=== PATIENT | female | born 1955 | race Caucasian/White ===

== ENCOUNTER 2020-01-18 10:48 | Emergency (ER) | payer MEDICARE, SELFPAY ==
[2020-01-18 11:14] VITALS: BP 122/62; PULSE 85; RESP 18; TEMP 37; O2SAT 99
--- NOTE | 2020-01-18 11:56 | DI.CT.S_ITS ---
PROCEDURE: CT HEAD/BRAIN WO CON INDICATIONS: generalized weakness, memory difficulty TECHNIQUE: Noncontrast 4.5 mm thick angled axial sections acquired from the foramen magnum to the vertex, with coronal and sagittal reformats. For radiation dose reduction, the following was used: automated exposure control, adjustment of mA and/or kV according to patient size. COMPARISON: None. FINDINGS: Image quality: Excellent. CSF spaces: Basal cisterns are patent. No extra-axial fluid collections. Ventricles are normal in size and shape. Brain: No midline shift. No intracranial masses or hemorrhage. Bella-white matter interface is normal. Skull and face: Calvarium and visualized facial bones are intact, without suspicious lesions. Sinuses: Visualized sinuses and mastoids are clear. IMPRESSION: No acute intracranial abnormality. Dictated by: Julio C Sen M.D. on 01/18/2020 at 12:28 Approved by: Julio C Sen M.D. on 01/18/2020 at 12:31
--- NOTE | 2020-01-18 12:40 | PC.NURSE ---
iv site placed labs drawn
[2020-01-18 12:43] LABS: Add Manual Diff / Slide Review NO; Basophils Absolute Auto 0 /uL (0-100); Basophils Percent Auto 0.4 % (0-2); Eosinophils Absolute Auto 0 /uL (0-450); Eosinophils Percent Auto 0.6 % (2-4); Hematocrit 35.3 % (36-46); Hemoglobin 11.8 g/dL (12.0-16.0); Lymphocytes Absolute Auto 1200 /uL (1100-4500); Lymphocytes Percent Auto 19.8 % (25-40); Mean Corpuscular HGB Conc 33.4 % (30-36); Mean Corpuscular Hemoglobin 28.6 PG (26-34); Mean Corpuscular Volume 85.6 fL (80-100); Monocytes Absolute Auto 500 /uL (0-900); Monocytes Percent Auto 7.7 % (3-14); Neutrophils Absolute Auto 4300 /uL (1500-7000); Neutrophils Percent Auto 71.5 % (50-75); Platelet Count 258 X10^3/uL (150-400); Red Blood Cell Count 4.13 X10^6/uL (4.0-5.2); Red Cell Distribution Width 14.4 % (11.6-14.8)
[2020-01-18 12:50] LABS: INR 1.1 (0.9-1.3); Prothrombin Time 12.7 SECONDS (10.1-12.7)
[2020-01-18 12:52] LABS: PTT Partial Thromboplastin Tim 34 SECONDS (26.4-36.2)
[2020-01-18 12:58] LABS: Alanine Aminotransferase 16 IU/L (<35); Albumin 4.4 g/dL (3.5-5.0); Albumin Globulin Ratio 1.2 (1.0-2.8); Alkaline Phosphatase 75 U/L (38-126); Aspartate Aminotransferase 25 IU/L (14-36); BUN Creatinine Ratio 22.7 (6-22); Bilirubin Total 0.4 mg/dL (0.2-1.3); Blood Urea Nitrogen 15 mg/dL (7-17); Calcium 9.6 mg/dL (8.4-10.2); Carbon Dioxide 32 mmol/L (22-32); Chloride 103 mmol/L (98-107); Estimated Glomerular Filt Rate > 60.0 mL/min (>60); Globulin 3.6 g/dL (1.7-4.1); Glucose 93 mg/dL (80-110); HEMOLYSIS 37 (0-50); Potassium 4.5 mmol/L (3.4-5.1); Sodium 141 mmol/L (137-145)
[2020-01-18 13:10] LABS: Creatine Kinase 61 U/L (30-135)
--- NOTE | 2020-01-18 13:17 | ED_ITS ---
HPI - Weakness <LATIA Ashley - Last Filed: 01/19/20 00:18> General Chief complaint: Weakness Stated complaint: Bilateral arm and leg floppiness Time Seen by Provider: 01/18/20 11:05 Source: patient Mode of arrival: Ambulatory Limitations: no limitations History of Present Illness HPI Narrative: This is a 64 year female, nonsmoker, who has history of hypothyroidism and migraine headache presents to ED with generalize weakness in bilateral upper and lower extremities and had difficult time remembering one particular conversation last night at 8 pm. Patient states she has condition that her body can recover from exertion quickly. The patient is currently visiting [facility] in [facility] for last 6 weeks and she resides in [place] and is planning to go back to [place] in 5 days. Patient states she had similar symptoms with generalize weakness in upper and lower extremities once in July and again in September when she reached out to grab something above her head with leaning backward position/bending forward and describes as her arms, legs and neck felt floppy which lasts for brief moments. She contributed to not paying attention and mindful for not remembering 1 particular conversation. She was seen at urgent care and recommended an evaluation by neurologist. She actually had neurologist appointment 2 days ago which she canceled since she had not had recurring symptoms until last night. She had brain MRI test in 11/19/19 and was informed no abnormal findings. She has arranged follow-up appointment with her primary care physician back in [place] and neurology appointment when she returns to home. She denies chest pain, breathing difficul ty, dizziness, fever, chills, nausea or vomiting. She denies associated symptoms such as vision change, headache, speech difficulty, incoordination, facial droops. However, she is here today for an evaluation with concerns for stroke and whether she should be flying home on Tuesday. She reports she is very active and healthy. Review of Systems <LATIA Ashley - Last Filed: 01/19/20 00:18> Review of Systems Narrative: General: Denies fever, chills, fatigue, malaise, sweats. HEENT: Denies sinus pain, ear pain, sore throat, difficulty swallowing, dizziness. Respiratory: Denies dyspnea, cough, wheezing, hemoptysis, sputum. Cardiovascular: Denies chest pain, palpitations, orthopnea, edema. Gastrointestinal: Denies nausea, vomiting, abdominal pain, diarrhea, constipation, melena. : Denies dysuria, frequency, incontinence, hematuria, urinary retention. Musculoskeletal: See HPI Skin: Denies rash, skin lesions, or other. Neurologic: See HPI Psychiatric: No concerning psychosocial issues. 12-point review of systems is negative except for those stated above. Patient History <LATIA Ashley - Last Filed: 01/19/20 00:18> Medical History Hypothyroidism (Acute) Insomnia (Acute) Migraine headache (Acute) Social History Smoking Status: Never smoker Smoking Status: Never smoker alcohol intake frequency: holidays/special occasions only Exam <[facility] - Last Filed: 01/19/20 00:18> Narrative Exam Narrative: GEN: Alert, oriented x 3, well appearing and nourished, and in no acute distress. Head: Normal cephalic, atraumatic. No scalp or temporal tenderness, palpable mass or rash. EYES: Pupils are equal, round, and reactive to light and accommodation. Extraocular muscles are intact bilaterally. There is no subconjunctival hemorrhage, exudate and sclera non-icteric. ENT: Hearing grossly intact. Nose without bleeding, purulent discharge, septal hematoma or deviation. Turbinate without erythema or swelling. Facial sinuses nontender to palpate. Mucous membrane moist, no mucosal lesion. Throat without erythema, tonsillar hypertrophy or exudate. Uvula in midline, airway patent. Neck: Trachea in midline. No JVD, non-tender without lymphadenopathy. No mas ses or thyroid megaly. Supple, non-tender and no meningeal signs. CARDIAC: Normal regular rate and rhythm without murmurs, gallops, or rubs. No chest wall tenderness. No peripheral edema, cyanosis or pallor. Capillary refill is less than 2 seconds. No carotid bruits. RESPIRATORY: Lungs are cleat to auscultate bilaterally. No cough, wheezes, rales, or rhonchi. No stridor, respiratory distress, increase work of breathing, or accessary muscle used. ABD: Abdomen soft, nontender and non-distended. No guarding or rebound tenderness to palpate. Bowel sounds are normal in all 4 quadrants. There is no palpable masses or organomegaly. EXT: Full painless ROM of all extremities with no loss of sensation, strength, effusion or edema. SKIN: Warm, dry, normal color for patient. No erythema, lesions or rash. BACK: Nontender without deformity or crepitance. No flank tenderness. NEUROLOGICAL: Alert and oriented to place, time and person. No facial droops, dysphasia. CN II-XII intact. Strength and sensation symmetric and intact throughout. Cerebellar testing normal. PSYCHIATRIC: Good judgement and reason, without hallucinations, abnormal affect or abnormal behaviors during the examination. Patient is not suicidal. Initial Vital Signs Initial Vital Signs: Vital Signs Temperature 98.6 F 01/18/20 11:14 Pulse Rate 85 01/18/20 11:14 Respiratory Rate 18 01/18/20 11:14 Blood Pressure 122/62 01/18/20 11:14 Pulse Oximetry 99 01/18/20 11:14 <Joy Connolly DO - Last Filed: 01/19/20 07:13> Initial Vital Signs Initial Vital Signs: Vital Signs Temperature 98.6 F 01/18/20 11:14 Pulse Rate 85 01/18/20 11:14 Respiratory Rate 18 01/18/20 11:14 Blood Pressure 122/62 01/18/20 11:14 Pulse Oximetry 99 01/18/20 11:14 Scores <LATIA Ashley - Last Filed: 01/19/20 00:18> GCS [place] coma scale eye opening: Spontaneous Lilly coma scale verbal response: Orientated [place] coma scale motor response: Obey commands Salem coma scale total score: 15 NIH Stroke Scale Level of Conciousness: Alert, keenly responsive Ask month/age: Answers both questions correctly. Open/close eyes, close hand: Performs both tasks correctly Best gaze horizontal: Normal Visual colunga: No visual loss Facial palsy: Normal symetrical movement Left arm drift: No drift for full 10 sec Right arm drift: No drift for full 10 sec Left leg drift: No drift for full 10 sec Right leg drift: No drift for full 10 sec Limb ataxia: Absent Sensory on face/arms/legs: Normal, no sensory loss Best language: No aphasia, normal Dysarthria: Normal Extinction or inattention: No abnormality Total NIH Stroke scale score: 0 Course <Raffy WynneLATIA Chong - Last Filed: 01/19/20 00:18> Orders Ordered: ED Orders 01/18/20 11:55 EKG-12 Lead Stat 01/18/20 11:56 CT head/brain wo con Stat 01/18/20 12:36 Complete Blood Count AUTO DIFF Stat Comprehensive Metabolic Panel Stat Partial Thromboplastin Time Stat Prothrombin Time INR Stat Troponin & CK Cardiac Panel Stat Vital Signs Vital signs: Vital Signs - 8 hr 01/18/20 11:14 Temperature 98.6 F Pulse Rate 85 Respiratory Rate 18 Blood Pressure 122/62 Pulse Oximetry 99 <Joy Connolly DO - Last Filed: 01/19/20 07:13> Orders Ordered: ED Orders 01/18/20 11:55 EKG-12 Lead Stat 01/18/20 11:56 CT head/brain wo con Stat 01/18/20 12:36 Complete Blood Count AUTO DIFF Stat Comprehensive Metabolic Panel Stat Partial Thromboplastin Time Stat Prothrombin Time INR Stat Troponin & CK Cardiac Panel Stat Vital Signs Vital signs: Vital Signs - 8 hr 01/18/20 11:14 Temperature 98.6 F Pulse Rate 85 Respiratory Rate 18 Blood Pressure 122/62 Pulse Oximetry 99 MDM - Weakness <Raffy WynneDidierLATIA manzo - Last Filed: 01/19/20 00:18> Differential Diagnosis Differential diagnosis: Likely anemia, dehydration and other (CVA, TIA, electrolytes imbalance, arrhythmia) Medical Records Attestation: I reviewed the patient's medical records. Lab Data Attestation: I reviewed the patient's lab results. Result diagrams: 01/18/20 12:36 01/18/20 12:36 Labs: Lab Results 01/18/20 01/18/20 01/18/20 Range/Units 12:36 12:36 12:36 WBC 6.0 (4.5-11.0) X10^3/uL RBC 4.13 (4.0-5.2) X10^6/uL Hgb 11.8 L (12.0-16.0) g/dL Hct 35.3 L (36-46) % MCV 85.6 (80-100) fL MCH 28.6 (26-34) PG MCHC 33.4 (30-36) % RDW 14.4 (11.6-14.8) % Plt Count 258 (150-400) X10^3/uL Neut % (Auto) 71.5 (50-75) % Lymph % (Auto) 19.8 L (25-40) % Long % (Auto) 7.7 (3-14) % Eos % (Auto) 0.6 L (2-4) % Baso % (Auto) 0.4 (0-2) % Neut # (Auto) 4300 (9746-2404) /uL Lymph # (Auto) 1200 (1795-9928) /uL Long # (Auto) 500 (0-900) /uL Eos # (Auto) 0 (0-450) /uL Baso # (Auto) 0 (0-100) /uL PT 12.7 (10.1-12.7) SECONDS INR 1.1 (0.9-1.3) APTT 34 (26.4-36.2) SECONDS Sodium 141 (137-145) mmol/L Potassium 4.5 (3.4-5.1) mmol/L Chloride 103 (98-107) mmol/L Carbon Dioxide 32 (22-32) mmol/L BUN 15 (7-17) mg/dL Creatinine 0.66 (0.52-1.04) mg/dL Estimated GFR > 60.0 (>60) mL/min BUN/Creatinine Ratio 22.7 H (6-22) Glucose 93 (80-110) mg/dL Calcium 9.6 (8.4-10.2) mg/dL Total Bilirubin 0.4 (0.2-1.3) mg/dL AST 25 (14-36) IU/L ALT 16 (<35) IU/L Alkaline Phosphatase 75 (38-126) U/L Total Creatine Kinase (30-135) U/L CK-MB (CK-2) CK-MB (CK-2) Rel Index Troponin I (0.01-0.034) ng/mL Total Protein 8.0 (6.3-8.2) g/dL Albumin 4.4 (3.5-5.0) g/dL Globulin 3.6 (1.7-4.1) g/dL Albumin/Globulin Ratio 1.2 (1.0-2.8) 01/18/20 Range/Units 12:36 WBC (4.5-11.0) X10^3/uL RBC (4.0-5.2) X10^6/uL Hgb (12.0-16.0) g/dL Hct (36-46) % MCV (80-100) fL MCH (26-34) PG MCHC (30-36) % RDW (11.6-14.8) % Plt Count (150-400) X10^3/uL Neut % (Auto) (50-75) % Lymph % (Auto) (25-40) % Long % (Auto) (3-14) % Eos % (Auto) (2-4) % Baso % (Auto) (0-2) % Neut # (Auto) (3443-9830) /uL Lymph # (Auto) (6742-4216) /uL Long # (Auto) (0-900) /uL Eos # (Auto) (0-450) /uL Baso # (Auto) (0-100) /uL PT (10.1-12.7) SECONDS INR (0.9-1.3) APTT (26.4-36.2) SECONDS Sodium (137-145) mmol/L Potassium (3.4-5.1) mmol/L Chloride (98-107) mmol/L Carbon Dioxide (22-32) mmol/L BUN (7-17) mg/dL Creatinine (0.52-1.04) mg/dL Estimated GFR (>60) mL/min BUN/Creatinine Ratio (6-22) Glucose (80-110) mg/dL Calcium (8.4-10.2) mg/dL Total Bilirubin (0.2-1.3) mg/dL AST (14-36) IU/L ALT (<35) IU/L Alkaline Phosphatase (38-126) U/L Total Creatine Kinase 61 (30-135) U/L CK-MB (CK-2) TNP CK-MB (CK-2) Rel Index TNP Troponin I < 0.012 (0.01-0.034) ng/mL Total Protein (6.3-8.2) g/dL Albumin (3.5-5.0) g/dL Globulin (1.7-4.1) g/dL Albumin/Globulin Ratio (1.0-2.8) Urine Dip Bedside Urine Glucose Negative Bedside Urine Bilirubin - Negative Bedside Urine Ketone - Negative Urine Specific Lefor 1.010 Bedside Urine Occult Blood - Negative Bedside Urine pH 7.5 Bedside Urine Protein - Negative Bedside Urine Urobilinogen - Negative Bedside Urine Nitrite - Negative Bedside Urine Leukocytes +/- [address] scan - head: Radiologist Impression: [address] [address] [address] Scan Report Signed Patient: Kandis ErvinMR#: [id number] : 4Acct:[id number] Age/Sex: 64 / FDate of Service: 01/18/20 Loc: ED Accession Number: [id number] Procedure: CT head/brain wo con Ordering Provider: Raffy Etienne PROCEDURE: CT HEAD/BRAIN WO CON INDICATIONS: generalized weakness, memory difficulty TECHNIQUE: Noncontrast 4.5 mm thick angled axial sections acquired from the foramen magnum to the vertex, with coronal and sagittal reformats. For radiation dose reduction, the following was used: automated exposure control, adjustment of mA and/or kV according to patient size. COMPARISON: None. FINDINGS: Image quality: Excellent. CSF spaces: Basal cisterns are patent. No extra-axial fluid collections. Pablo tricles are normal in size and shape. Brain: No midline shift. No intracranial masses or hemorrhage. Bella-white matter interface is normal. Skull and face: Calvarium and visualized facial bones are intact, without suspicious lesions. Sinuses: Visualized sinuses and mastoids are clear. IMPRESSION: No acute intracranial abnormality. Dictated by: Julio C Sen M.D. on 01/18/2020 at 12:28 Approved by: Julio C Sen M.D. on 01/18/2020 at 12:31 ECG Data Attestation: I personally reviewed and interpreted this ECG as follows: Prior ECG tracings: not available for review Interpretation: Sinus rhythm rate at 76. Normal axis. ID interval 160, QRS duration 111, QT/QTC 296/335. No acute ST changes MDM Narrative Medical decision making narrative: This is a 64 year female who presents to ED with bilateral upper and lower extremity weakness and was not able to remember a particular conversation she had last night without other typical stroke symptoms. She had normal MRI test of brain in October of this year after she had similar experience twice in July and September which is assuring. Physical exam was unremarkable. There is no focal neurological deficit. NIH scale was 0. Patient is planning to travel back to [place] in 5 days and has follow-up appointment scheduled with her primary care physician. EKG was normal sinus rhythm without acute ST changes. Head CT was unremarkable. CBC and chemistry tests were unremarkable including a negative troponin. Normal coag results. Vital signs are within normal limits. Patient's symptom with unclear etiology. Findings were shared with the patient and advised to follow-up with her primary care physician and possible a referral to neurologist for further testing and evaluation. Return precautions were discussed with patient and patient verbalized understanding in agreement with the treatment plan. <Joy Connolly, DO - Last Filed: 01/19/20 07:13> Lab Data Labs: Lab Results 01/18/20 01/18/20 01/18/20 Range/Units 12:36 12:36 12:36 WBC 6.0 (4.5-11.0) X10^3/uL RBC 4.13 (4.0-5.2) X10^6/uL Hgb 11.8 L (12.0-16.0) g/dL Hct 35.3 L (36-46) % MCV 85.6 (80-100) fL MCH 28.6 (26-34) PG MCHC 33.4 (30-36) % RDW 14.4 (11.6-14.8) % Plt Count 258 (150-400) X10^3/uL Neut % (Auto) 71.5 (50-75) % Lymph % (Auto) 19.8 L (25-40) % Long % (Auto) 7.7 (3-14) % Eos % (Auto) 0.6 L (2-4) % Baso % (Auto) 0.4 (0-2) % Neut # (Auto) 4300 (5931-5940) /uL Lymph # (Auto) 1200 (8240-8404) /uL Long # (Auto) 500 (0-900) /uL Eos # (Auto) 0 (0-450) /uL Baso # (Auto) 0 (0-100) /uL PT 12.7 (10.1-12.7) SECONDS INR 1.1 (0.9-1.3) APTT 34 (26.4-36.2) SECONDS Sodium 141 (137-145) mmol/L Potassium 4.5 (3.4-5.1) mmol/L Chloride 103 (98-107) mmol/L Carbon Dioxide 32 (22-32) mmol/L BUN 15 (7-17) mg/dL Creatinine 0.66 (0.52-1.04) mg/dL Estimated GFR > 60.0 (>60) mL/min BUN/Creatinine Ratio 22.7 H (6-22) Glucose 93 (80-110) mg/dL Calcium 9.6 (8.4-10.2) mg/dL Total Bilirubin 0.4 (0.2-1.3) mg/dL AST 25 (14-36) IU/L ALT 16 (<35) IU/L Alkaline Phosphatase 75 (38-126) U/L Total Creatine Kinase (30-135) U/L CK-MB (CK-2) CK-MB (CK-2) Rel Index Troponin I (0.01-0.034) ng/mL Total Protein 8.0 (6.3-8.2) g/dL Albumin 4.4 (3.5-5.0) g/dL Globulin 3.6 (1.7-4.1) g/dL Albumin/Globulin Ratio 1.2 (1.0-2.8) 08//20 Range/Units 12:36 WBC (4.5-11.0) X10^3/uL RBC (4.0-5.2) X10^6/uL Hgb (12.0-16.0) g/dL Hct (36-46) % MCV (80-100) fL MCH (26-34) PG MCHC (30-36) % RDW (11.6-14.8) % Plt Count (150-400) X10^3/uL Neut % (Auto) (50-75) % Lymph % (Auto) (25-40) % Long % (Auto) (3-14) % Eos % (Auto) (2-4) % Baso % (Auto) (0-2) % Neut # (Auto) (0399-1500) /uL Lymph # (Auto) (0623-8041) /uL Long # (Auto) (0-900) /uL Eos # (Auto) (0-450) /uL Baso # (Auto) (0-100) /uL PT (10.1-12.7) SECONDS INR (0.9-1.3) APTT (26.4-36.2) SECONDS Sodium (137-145) mmol/L Potassium (3.4-5.1) mmol/L Chloride (98-107) mmol/L Carbon Dioxide (22-32) mmol/L BUN (7-17) mg/dL Creatinine (0.52-1.04) mg/dL Estimated GFR (>60) mL/min BUN/Creatinine Ratio (6-22) Glucose (80-110) mg/dL Calcium (8.4-10.2) mg/dL Total Bilirubin (0.2-1.3) mg/dL AST (14-36) IU/L ALT (<35) IU/L Alkaline Phosphatase (38-126) U/L Total Creatine Kinase 61 (30-135) U/L CK-MB (CK-2) TNP CK-MB (CK-2) Rel Index TNP Troponin I < 0.012 (0.01-0.034) ng/mL Total Protein (6.3-8.2) g/dL Albumin (3.5-5.0) g/dL Globulin (1.7-4.1) g/dL Albumin/Globulin Ratio (1.0-2.8) Urine Dip Bedside Urine Glucose Negative Bedside Urine Bilirubin - Negative Bedside Urine Ketone - Negative Urine Specific Lefor 1.010 Bedside Urine Occult Blood - Negative Bedside Urine pH 7.5 Bedside Urine Protein - Negative Bedside Urine Urobilinogen - Negative Bedside Urine Nitrite - Negative Bedside Urine Leukocytes +/- 15 Esterase Discharge Plan Departure Patient Disposition: Home Clinical Impression: Generalized weakness Discharge Date/Time: 01/18/20 14:21 Instructions: DI for Muscle Weakness Activity Restrictions/Additional Instructions: You have been diagnosed with [generalized weakness. Unremarkable lab tests including CBC, chemistry, coags, cardiac enzymes. Head CT without acute f indings.]. What to do: *Take your medications as directed. *Follow up with your primary care provider in 2-3 days, call for an appointment. Let them know you were seen in the ED and that we asked you to be seen in follow up. Please bring in CT and lab test results from today's visit for next appointment with her primary care physician when you return home. You may require further advanced imaging test and referral to other specialty provider. *Return to ED if you have any new, worsening, or concerning symptoms, such as [chest pain, breathing difficulty, unable to tolerate fluids, fever, weakness to 1 side of body, speech difficulty, vision change, headache, speech difficulty or any acute concerns]. <Joy Connolly, DO - Last Filed: 01/19/20 07:13> Cosign ED Attending Heatherature Attestation: I was immediately available in the department for consultation. Documentation has been reviewed. I agree with assessment and plan.
[2020-01-18 13:23] LABS: Troponin I < 0.012 ng/mL (0.01-0.034)
== END 2020-01-18 14:21 | disposition home or self-care (01) ==
PROVIDERS: Emergency Provider Nurse Practitioner Family; Referring Provider Nurse Practitioner Family
DX: R53.1 Weakness (principal); R41.3 Other amnesia
CPT/HCPCS: 36415; 70450; 80053; 81003; 82550; 84484; 85025; 85610; 85730; 93005; 93010; 99283; 99284